=== PATIENT | female | born 2000 | race Caucasian/White ===

== ENCOUNTER 2019-12-05 13:25 | Emergency (ER) | payer OTHER ==
[~2019-12-05] VITALS: Ht 167.6 cm; Wt 80.9 kg
[2019-12-05] MEDS ORDERED: ORTH1TAB8 PO (13:33)
[2019-12-05] MEDS ORDERED: TRIA1CR80 TOP (16:23)
[2019-12-05 16:24] VITALS: BP 114/78
== END 2019-12-05 16:34 | disposition home or self-care (01) ==
LOC: M ED 13:25
DX: T63.441A Toxic effect of venom of bees, accidental (unintentional), initial encounter (principal); R22.32 Localized swelling, mass and lump, left upper limb

== ENCOUNTER 2021-05-10 14:14 | Emergency (ER) | payer OTHER ==
[~2021-05-10] VITALS: Ht 165.1 cm; Wt 96.6 kg
[2021-05-10 14:14] VITALS: BP 124/82
[~2021-05-10 14:14] MED LIST: ORTH1TAB8 PO; TRIA1CR80 TOP
[2021-05-10] MEDS ORDERED: BACITRACIN OINTMENT 30GM TUBE TOP ONE (15:50)
[2021-05-10] MEDS ORDERED: AMOX875T2 PO (15:54)
== END 2021-05-10 16:13 | disposition home or self-care (01) ==
LOC: M ED 14:14
DX: S61.452A Open bite of left hand, initial encounter (principal); W54.0XXA Bitten by dog, initial encounter; F17.200 Nicotine dependence, unspecified, uncomplicated; F10.10 Alcohol abuse, uncomplicated; Y92.009 Unspecified place in unspecified non-institutional (private) residence as the place of occurrence of the external cause; Y93.9 Activity, unspecified; Y99.9 Unspecified external cause status

== ENCOUNTER → 2021-09-02 | Outpatient (REF) ==
[~2021-09-02] MED LIST changes: +AMOX875T2 PO
[2021-09-02 11:39] LABS: RSV AMPLIFICATION NEGATIVE (NEGATIVE)
== END ==
LOC: M EMP 10:46
PROVIDERS: ATTEND Family Medicine
DX: Z20.822 Contact with and (suspected) exposure to COVID-19 (principal); Z11.52 Encounter for screening for COVID-19

== ENCOUNTER → 2021-10-23 | Outpatient (REF) ==
[2021-10-23 10:02] LABS: RSV AMPLIFICATION NEGATIVE (NEGATIVE)
== END ==
LOC: M EMP 07:28 → M LAB 07:28
PROVIDERS: ATTEND Family Medicine
DX: Z11.52 Encounter for screening for COVID-19 (principal)

== ENCOUNTER → 2021-10-30 | Outpatient (REF) | LOC: M EMP 09:55 | PROVIDERS: ATTEND Family Medicine | DX: Z11.52 Encounter for screening for COVID-19 (principal) ==